=== PATIENT | female | born 1965 | race Caucasian/White ===

== ENCOUNTER → 2024-02-19 09:09 | Outpatient (REF) | payer BC, SELFPAY | LOC: HWWDC 09:09 | PROVIDERS: ATTENDING PHYSICIAN Obstetrics & Gynecology; FAMILY PHYSICIAN Family Medicine | DX: Z12.31 Encounter for screening mammogram for malignant neoplasm of breast (principal) | CPT/HCPCS: 77063; 77067 ==

== ENCOUNTER → 2025-02-17 08:21 | Outpatient (REF) | payer BC, SELFPAY | LOC: HWRAD 08:21 | PROVIDERS: ATTENDING PHYSICIAN Nurse Practitioner Women's Health; FAMILY PHYSICIAN Family Medicine | DX: M81.0 Age-related osteoporosis without current pathological fracture (principal) | CPT/HCPCS: 77080 ==

== ENCOUNTER → 2025-03-03 09:27 | Outpatient (REF) | payer BC, SELFPAY | LOC: HWWDC 09:27 | PROVIDERS: ATTENDING PHYSICIAN Nurse Practitioner Women's Health; FAMILY PHYSICIAN Family Medicine; REFERRING PHYSICIAN Obstetrics & Gynecology | DX: Z12.31 Encounter for screening mammogram for malignant neoplasm of breast (principal) | CPT/HCPCS: 77063; 77067 ==

== ENCOUNTER 2025-04-24 15:51 | Emergency (ER) | payer BC, SELFPAY ==
[2025-04-24 16:00] VITALS: BP 155/106
--- NOTE | 2025-04-24 17:08 | ED.GENMED ---
History of Present Illness
General
Chief Complaint: Skin Surface Trauma
Source: patient
Exam Limitations: none
Time Seen by Provider: 04/24/25 16:38
Nursing documentation reviewed up to this point in time: agreed with
History of Present Illness
History of Present Illness:
Patient is a 60-year-old female who presents to the emergency department with skin tear of left bella. Patient states she was walking up a step outside her home earlier today when she tripped catching her left bella on a cement step. She noticed a
significant tear to the skin on her left lower leg and was unable to control the bleeding at home.
She has been ambulating without difficulty. No head strike or other associated injuries.
Patient unsure of last tetanus shot. She is not on any oral anticoagulation.
Past History
Past History
ED Past Medical History: Other (Kidney stone)
ED Past Surgical History: Appendectomy, Gynecological (Partial hysterectomy), Urological (Cystoscopy with left ureteral stone removal/stent placement 07/18/2019.) and Other (Gastric bypass)
Social History
Tobacco: Non-smoker
Alcohol: Occasional
Drug: None
Personal:
Living: with family
Employment: Employed
Family History
Family History: Other (Noncontributory)
Review of Systems
Review of Systems
Allergies reviewed?: Yes
All Other Systems: ROS reviewed and negative except as documented in HPI and ROS
Phy Exam
Physical Exam
Physical Exam:
Vitals: Hypertensive on arrival, otherwise vital signs stable. Afebrile
General: Patient is well appearing, no acute distress. Nontoxic appearing
Skin: Large skin tear to left anterior lower leg with no active bleeding.
Head: Normocephalic, atraumatic
Throat: Protecting airway
Neck: Normal ROM, no cervical spine tenderness
Cardiac: Regular rate
Pulm: No apparent respiratory distress
Abdomen: Nondistended
Extremities: Skin tear to the left bella as described above. No bony tenderness left lower extremity. Full range of motion in left ankle and left knee without pain.
Neuro: Grossly intact
Psychiatric: Normal affect.
Course
Orders/Labs/Results
Orders:
Orders
04/24/25 17:07
Lidocaine/Epinephrine/Tetracai [Let Topical Anesthetic Gel] 3 ml TOPICAL NOW STA
Tetanus/Diphth/Acelpertussis [Adacel] 0.5 ml IM .ONCE ONE
04/24/25 17:42
Acetaminophen [Tylenol] 650 mg .ROUTE .STK-MED ONE
04/24/25 17:55
Acetaminophen [Tylenol] 650 mg PO NOW STA
Vital Signs
Initial and Last Documented VS:
Initial Vital Signs
Temp Pulse Resp BP Pulse Ox
99.1 F 107 16 155/106 95
04/24/25 16:00 04/24/25 16:00 04/24/25 16:00 04/24/25 16:00 04/24/25 16:00
Last Documented Vital Signs
Temp Pulse Resp BP Pulse Ox
99.1 F 73 20 135/87 99
04/24/25 16:00 04/24/25 19:55 04/24/25 19:55 04/24/25 19:55 04/24/25 19:55
MDM/Problems Addressed
Differential Diagnosis Includes:
Not limited to: Skin tear, laceration, abrasion, contusion, etc.
MDM/Problems Addressed:
60-year-old female presenting with skin tear to left lower extremity sustained during mechanical trip and fall earlier today. No head strike or other associated injuries. Patient ambulating without difficulty. No thinners. Vitals and exam as
above. There is a large skin tear noted to the left bella. Left lower extremity otherwise atraumatic and nontender with full range of motion. No bony tenderness at this time. Do not feel imaging indicated
Skin tear without any obvious area of true tissue loss. Topical lidocaine was applied and wound was thoroughly irrigated with normal saline. Wound edges approximated well with Steri-Strips. Hemostasis obtained and patient tolerated procedure
well. Pressure dressing applied. Discussed wound care instructions at length and follow-up with primary care to ensure healing well. Tdap updated in emergency department. Patient stable for discharge home.
Chronic conditions affecting care:
N/A
Acute Exacerbation and/or Progression of Chronic Illness:
N/A
*Pulse Oximetry
SaO2: 95
Oxygen Mode of Delivery: Room air
Patient hypoxic: no
*EKG
Interpreted by ED Provider?: NA
*Manager Health Interpretation
Rate: Manager Health- N/A
*Critical Care Note
Total Time (30-74mins, 75-104mins- exclusive of procedures): Not Applicable
ED Attending Note
-
Portions of this chart may have been created with voice recognition software.� Occasional wrong word or��sound alike� substitutions may have occurred due to the inherent limitations of voice recognition software.
Discharge Plan
Departure
Patient Disposition: Home (Routine Discharge)
Date of Disposition: 04/24/25
Time of Disposition: 19:30
Patient with high blood pressure during this ER visit?: Yes
Discharge Problem:
Skin tear of left lower leg without complication
Instructions: Wound care - ED discharge instructions, BLOOD PRESSURE
Prescriptions:
No Action
hydrocodone-acetaminophen 1 TABLET tablet
1 tab PO Q4HPRN PRN (Reason: pain) Qty: 14 0RF
ondansetron 4 MG tablet,disintegrating
4 mg PO TIDPRN PRN (Reason: nausea/vomiting) Qty: 10 0RF
denosumab [Prolia] 60 MG/ML syringe
60 mg SQ .Q6MO
multivitamin 1 EACH tablet
1 ea PO DAILY
hydrocodone-acetaminophen 1 EACH tablet
1 ea PO QIDPRN PRN (Reason: MODERATE PAIN) Qty: 10 0RF
ketorolac 10 MG tablet
10 mg PO TIDPRN PRN (Reason: flank pain) Qty: 10 0RF
ondansetron 4 MG tablet,disintegrating
4 mg PO QIDPRN PRN (Reason: nausea/vomiting) Qty: 20 0RF
Referrals:
Samm Morales MD [Family Provider, Family Practice] - Follow up in 10 days
Activity Restrictions/Additional Instructions:
RETURN TO THE EMERGENCY DEPARTMENT WITH ANY BLEEDING THAT WILL NOT STOP AT HOME OR ANY SIGNS OF INFECTION AROUND WOUND
- Your skin tear was closed with Steri-Strips today in the emergency department. Please keep wound covered and dry for the next 24 hours.
- As wound heals�continue to keep wound clean and dry. Wash gently with soap and water. Keep leg elevated over the next few days.
- You can take Tylenol as needed for any pain.
- Monitor very closely for signs of infection
Monitor symptoms closely return to the emergency department with any acute worsening/new symptoms or any other concerns
Interventions
Interventions:
*Risk Screen - Suicide Last Done: 04/24/25 17:00
*General Assessment Last Done: 04/24/25 17:00
*Neglect/Abuse Screening Last Done: 04/24/25 17:00
*ED COVID-19 Vaccine History Last Done: 04/24/25 17:00
*Nursing Disposition Last Done: 04/24/25 19:55
ED-Skin Assessment Last Done: 04/24/25 17:00
Discharge Date and Time
Discharge Date/Time: 04/24/25 19:56
Print Language: ANDORRAN
[2025-04-24] MEDS: LET TOPICAL ANESTHETIC GEL 3 ML TOPICAL (17:15)
[2025-04-24] MEDS: TYLENOL 650 MG PO (17:55)
[2025-04-24] MEDS: ADACEL 0.5 ML IM (18:00)
[2025-04-24 19:55] VITALS: BP 135/87
== END 2025-04-24 19:56 | disposition home or self-care (01) ==
LOC: EMR 15:51
PROVIDERS: EMERGENCY PHYSICIAN Emergency Medicine; FAMILY PHYSICIAN Family Medicine
DX: S81.812A Laceration without foreign body, left lower leg, initial encounter (principal); W01.0XXA Fall on same level from slipping, tripping and stumbling without subsequent striking against object, initial encounter; Y93.01 Activity, walking, marching and hiking; Z23 Encounter for immunization; Z87.442 Personal history of urinary calculi; Z90.49 Acquired absence of other specified parts of digestive tract; Z98.84 Bariatric surgery status
CPT/HCPCS: 99282; 90471; 90715